=== PATIENT | male | born 1975 | race Hispanic/Latino ===

== ENCOUNTER 2017-01-28 14:39 | Observation (INO) | payer OTHER ==
[~2017-01-28] VITALS: Ht 188 cm; Wt 109.0 kg
[2017-01-28] MEDS ORDERED: BUPR150T5 PO (14:54)
[2017-01-28] MEDS ORDERED: CYMB60CA3 PO (14:54)
[2017-01-28] MEDS ORDERED: NS 1,000 ML IV ONE (15:15)
--- NOTE | 2017-01-28 15:46 | REP ---
CT Head without contrast HISTORY: Altered mental status COMPARISON: None There is no intraparenchymal hemorrhage, acute infarct, mass or midline shift. The ventricular system is normal in appearance. There is no extra cerebral collection. There is no fracture. The visualized sinuses are clear. IMPRESSION: There is no intracranial lesion. Signed by Boni To MD 01/28/2017 03:37 P
[2017-01-28 15:50] LABS: BASO % 0.4 % (0.0-1.0); EOS # 0.1 K/mm3 (0.0-0.50); EOS % 2.4 % (0.0-3.0); LARGE UNSTAINED CELL # 0.1 K/mm3 (0.0-0.4); LARGE UNSTAINED CELL % 2.4 % (0.0-4.0); LYMPH # 0.9 K/mm3 (1.5-4.5); LYMPH % 16.1 % (24.0-44.0); MEAN CORPUSCULAR HEMOGLOBIN 30.3 pg (27.0-33.0); MEAN CORPUSCULAR HGB CONC 34.7 g/dl (32.0-36.5); MEAN CORPUSCULAR VOLUME 87.2 fl (80.0-96.0); MONO # 0.3 K/mm3 (0.0-0.8); MONO % 6.1 % (0.0-5.0); NEUTROPHILS # 3.5 K/mm3 (1.8-7.7); NEUTROPHILS % 72.6 % (36.0-66.0); PLATELET COUNT, AUTOMATED 158 k/mm3 (150-450); RED CELL DISTRIBUTION WIDTH 13.2 % (11.5-14.5); WHITE BLOOD COUNT 4.8 K/mm3 (4.0-10.0)
[2017-01-28 16:06] LABS: METHADONE URINE NEGATIVE (NEGATIVE)
[2017-01-28 16:13] LABS: ALBUMIN 3.7 GM/DL (3.2-5.2); ALBUMIN/GLOBULIN RATIO 1.68 (1.00-1.93); ALKALINE PHOSPHATASE 65 U/L (45-117); ALT/SGPT 24 U/L (12-78); ANION GAP 6 MEQ/L (8-16); AST/SGOT 14 U/L (15-37); BILIRUBIN,DIRECT < 0.1 MG/DL (0.0-0.2); BILIRUBIN,TOTAL 0.5 MG/DL (0.2-1.0); BLOOD UREA NITROGEN 21 MG/DL (7-18); CALCIUM LEVEL 8.3 MG/DL (8.5-10.1); CARBON DIOXIDE LEVEL 27 MEQ/L (21-32); CHLORIDE LEVEL 103 MEQ/L (98-107); CREATININE FOR GFR 1.38 MG/DL (0.70-1.30); GLOMERULAR FILTRATION RATE > 60.0 (>60); GLUCOSE, FASTING 96 MG/DL (70-105); POTASSIUM SERUM 3.6 MEQ/L (3.5-5.1); SODIUM LEVEL 136 MEQ/L (136-145); TOTAL PROTEIN 5.9 GM/DL (6.4-8.2)
--- NOTE | 2017-01-28 16:31 | REP ---
The lung pugh are clear. The cardiac size is normal The yusuf, mediastinum, and bony thorax are unremarkable. Impression: Negative PA and lateral chest. Signed by Shemar Wang MD 01/28/2017 04:22 P
[2017-01-28] MEDS ORDERED: FORT10GE TOP (18:26)
[2017-01-28] MEDS: NS 1,000 ML IV SCH (19:21)
[2017-01-28] MEDS ORDERED: ONDANSETRON 4MG/2ML VIAL (J2405) IV PRN (19:30)
[2017-01-28] MEDS ORDERED: ACETAMINOPHEN TAB 650MG DOSE (2X325MG) PO PRN (19:30)
--- NOTE | 2017-01-28 20:30 | REPUSA ---
MRI of the brain Clinical history: altered mental status. Technique: [id number] MRA images of the brain were obtained without administration of contrast. 3 -D MIP images were also obtained. Findings: The vascular structures extending from the distal carotid and vertebrobasilar arterial syst ems, through the [place], demonstrate normal caliber and contour. There is no evidence of an eurysm, stenosis, or thrombosis. Impression: Unremarkable MRA examination of the brain.
--- NOTE | 2017-01-28 20:37 | HPEPDOC ---
General Date of Admission Jan 28, 2017 at 19:21 Other Providers PCP: [facility] Attending Physician: SLY MORALES MD Chief Complaint The patient is a 41-year-old male admitted with a reason for visit of Altered Awareness,Transient. History of Present Illness 41-year-old male [employer] [employer] with a PMH of Depression was brought to the EMS after he was found to be altered at home. According to the patient's at the bedside the patient returned home at approximately 1 PM this afternoon. Upon arrival home, the states that her appeared to be increasingly lethargic/drowsy, and unresponsive to verbal stimulation. She states that he seemed "loopy" and appeared to be drunk, although the patient has not drank any alcohol in 20+ years. She subsequently called EMS. Upon arrival of EMS personnel , the patient was noted to have pinpoint pupils. The patient was administered some Narcan and there wasn't an improvement in the patient's neurological status. At this time, the patient appears to be back at his baseline. He denies using any any kind of medications or illicit drugs. He states that he does not recollect all of the events, but notes that he does remember coming home and feeling tired. The patient denied any complaints of fevers, chills, headaches, chest pain, palpitations, shortness of breath, abdominal pain, neurological deficits, or any nausea/vomiting/diarrhea. In the ER, a CT scan of the head revealed no acute findings. A toxicology screening was also noted to be negative. Given the patient's transient alteration in mental status, the hospitalist service was called for admission for observation of the patient. Home Medications Scheduled (Fortesta) 10 Mg/Act Gel, 4 DOSE TOP DAILY, (Reported) APPLY 2 PUMPS TO EACH INNER THIGH Bupropion Hcl (Bupropion HCl Sr) 150 Mg Tab, 150 MG PO BID, (Reported) Duloxetine Hcl (Cymbalta) 60 Mg Cap, 60 MG PO DAILY, (Reported) Allergies Coded Allergies: No Known Allergies (Unverified , 01/28/17) Past Medical History Medical History As noted in HPI. Surgical History Lasik surgery in 2002. Family History Significant Family History: Other (mother has multiple sclerosis) Social History * Smoker: Denies Alcohol: Denies Drugs: denies Review of Symptoms Other systems 10 point review of systems negative unless otherwise specified in HPI. Physical Examination General Exam: Positive: Alert, Cooperative, No Acute Distress ENT Exam: Positive: Atraumatic, Mucous membr. moist/pink Neck Exam: Negative: JVD Chest Exam: Positive: Clear to auscultation, Normal air movement Heart Exam: Positive: Rate Normal, Normal S1, Normal S2 Telemetry: Positive: Sinus Abdomen Exam: Positive: Soft, Negative: Tenderness Extremity Exam: Negative: Tenderness, Swelling Neuro Exam: Positive: Strength at 5/5 X4 ext, Normal Tone, Sensation Intact, Cranial Nerves 3-12 NL Psych Exam: Positive: Oriented x 3 Vital Signs Vital Signs Date Time Temp Pulse Resp B/P (MAP) Pulse Ox O2 Delivery O2 Flow Rate FiO2 01/28/17 18:56 79 96 01/28/17 18:41 115/6 (42) 01/28/17 16:41 98.2 01/28/17 14:54 18 Room Air Laboratory Data Labs 24H Laboratory Tests 2 01/28/17 15:39: White Blood Count 4.8, Red Blood Count 4.60, Hemoglobin 13.9L, Hematocrit 40.1L , Mean Corpuscular Volume 87.2, Mean Corpuscular Hemoglobin 30.3, Mean Corpuscular Hemoglobin Concent 34.7, Red Cell Distribution Width 13.2, Platelet Count 158, Neutrophils (%) (Auto) 72.6H, Lymphocytes (%) (Auto) 16.1L, Monocytes (%) (Auto) 6.1H, Eosinophils (%) (Auto) 2.4, Basophils (%) (Auto) 0.4 , Neutrophils # (Auto) 3.5, Lymphocytes # (Auto) 0.9L, Monocytes # (Auto) 0.3, Eosinophils # (Auto) 0.1, Basophils # (Auto) 0.0, Large Unclassified Cells % 2.4 , Large Unclassified Cells # 0.1, Urine Appearance CLEAR, Urine Color STRAW, Urine pH 6.0, Urine Specific [place] 1.004, Urine Protein NEGATIVE, Urine Glucose (UA) NEGATIVE, Urine Ketones NEGATIVE, Urine Urobilinogen 0.2, Urine Bilirubin NEGATIVE, Urine Leukocyte Esterase NEGATIVE, Urine Blood NEGATIVE, Urine Nitrite NEGATIVE, Urine WBC (Auto) 0, Urine RBC (Auto) 0, Urine Hyaline Casts (Auto) 0, Urine Bacteria (Auto) NEGATIVE, Urine Squamous Epithelial Cells 0, Urine Sperm (Auto) , Anion Gap 6L, Glomerular Filtration Rate > 60.0, Calcium Level 8.3L, Aspartate Amino Transf (AST/SGOT) 14L, Alanine Aminotransferase (ALT/SGPT) 24, Alkaline Phosphatase 65, Total Bilirubin 0.5, Direct Bilirubin < 0.1, Total Creatine Kinase 154, Creatine Kinase MB 1.5, Creatine Kinase MB Relative Index 0.97, Troponin I < 0.02, Total Protein 5.9L, Albumin 3.7, Albumin/Globulin Ratio 1.68, Thyroid Stimulating Hormone (TSH) 3.790H, Salicylates Level < 1.7L, Urine Amphetamines Screen NEGATIVE, Urine Benzodiazepines Screen NEGATIVE, Urine Opiates Screen NEGATIVE, Urine Methadone Screen NEGATIVE, Acetaminophen Level 2.1L, Urine Barbiturates Screen NEGATIVE, Urine Phencyclidine Screen NEGATIVE, Urine Cocaine Metabolite Screen NEGATIVE, Urine Cannabinoids Screen NEGATIVE, Ethyl Alcohol Level 0.003 CBC/BMP Laboratory Tests 01/28/17 15:39 Red Blood Count 4.60, Mean Corpuscular Volume 87.2, Mean Corpuscular Hemoglobin 30.3, Mean Corpuscular Hemoglobin Concent 34.7, Red Cell Distribution Width 13.2 , Neutrophils (%) (Auto) 72.6 H, Lymphocytes (%) (Auto) 16.1 L, Monocytes (%) ( Auto) 6.1 H, Eosinophils (%) (Auto) 2.4, Basophils (%) (Auto) 0.4, Neutrophils # (Auto) 3.5, Lymphocytes # (Auto) 0.9 L, Monocytes # (Auto) 0.3, Eosinophils # (Auto) 0.1, Basophils # (Auto) 0.0 Microbiology Microbiology 01/28/17 Urine Culture, Received Pending Plan / VTE VTE Prophylaxis Ordered?: Yes Plan Plan Transient alteration in mental status of unclear etiology CT scan of the head with no acute findings MRI of the brain ordered Toxicology screen negative--however, according to EMS reports the patient's mentation did improve after administration of Narcan in the field The patient denies ingestion of any medication or illicit drugs at this time We will order TFT studies, ammonia level EKG with no acute ST findings, QTC interval noted to be within normal limits We will monitor the patient on telemetry, and do serial neurological checks History of depression Patient denies any suicidal or homicidal ideations Continue bupropion, duloxetine DVT prophylaxis Heparin subcutaneously The patient will be admitted under the service of Dr. Morales, who will begin to follow the patient on 01/29/17 at 7 AM. ALEXANDRO LUGO MD Jan 28, 2017 20:37
--- NOTE | 2017-01-28 20:40 | REPUSA ---
MRI of the brain Clinical history: altered mental status. Technique: Multiecho multiplanar MRI images of the brain were obtained without administration of cont rast. Diffusion weighted images with ADC mapping was also obtained. Findings: The ventricles and sulci are symmetric bilaterally. The brain parenchyma demonstrates uniform and nor mal signal on all sequences. There is no midline shift, mass effect, or extra-axial fluid collection. The midline intracranial structures do not demonstrate any gross abnormalities. The cervical cranial junction is intact. The orbits are unremarkable. The visualized paranasal sinuses and mastoid air ce lls are clear. The osseous structures and superficial soft tissues are unremarkable. The vascular str uctures demonstrate appropriate flow voids. Impression: Normal MRI of the Brain.
[2017-01-28] MEDS ORDERED: buPROPion **SR TABLET** (ZYBAN) 150MG PO SCH (21:00)
[2017-01-28 23:16] VITALS: BP 123/69
[2017-01-29] VITALS: PULSE 64
[2017-01-29] MEDS: NS 1,000 ML IV SCH (03:31)
[2017-01-29 04:00] VITALS: PULSE 55
[2017-01-29 04:06] VITALS: BP 123/77
[2017-01-29 05:54] LABS: MEAN CORPUSCULAR HEMOGLOBIN 31.2 pg (27.0-33.0); MEAN CORPUSCULAR HGB CONC 34.8 g/dl (32.0-36.5); MEAN CORPUSCULAR VOLUME 89.6 fl (80.0-96.0); RED CELL DISTRIBUTION WIDTH 13.5 % (11.5-14.5); WHITE BLOOD COUNT 3.5 K/mm3 (4.0-10.0)
[2017-01-29 06:07] LABS: ALBUMIN 3.3 GM/DL (3.2-5.2); ALBUMIN/GLOBULIN RATIO 1.32 (1.00-1.93); ALKALINE PHOSPHATASE 63 U/L (45-117); ALT/SGPT 22 U/L (12-78); ANION GAP 5 MEQ/L (8-16); AST/SGOT 11 U/L (15-37); BILIRUBIN,TOTAL 0.7 MG/DL (0.2-1.0); BLOOD UREA NITROGEN 16 MG/DL (7-18); CALCIUM LEVEL 7.9 MG/DL (8.5-10.1); CARBON DIOXIDE LEVEL 26 MEQ/L (21-32); CHLORIDE LEVEL 109 MEQ/L (98-107); CREATININE FOR GFR 1.22 MG/DL (0.70-1.30); GLOMERULAR FILTRATION RATE > 60.0 (>60); GLUCOSE, FASTING 88 MG/DL (70-105); MAGNESIUM LEVEL 2.2 MG/DL (1.8-2.4); POTASSIUM SERUM 3.8 MEQ/L (3.5-5.1); SODIUM LEVEL 140 MEQ/L (136-145); T UPTAKE 34 % (33-40); THYROXINE (T4) 5.8 UG/DL (4.5-12.0); TOTAL PROTEIN 5.8 GM/DL (6.4-8.2)
[2017-01-29] MEDS ORDERED: ENOXAPARIN 40 MG/0.4 ML SYRINGE (J1650) SC SCH (09:00)
[2017-01-29] MEDS ORDERED: DULoxetine 30 MG CAP (CYMBALTA) PO SCH (09:00)
--- NOTE | 2017-01-29 14:46 | DSES ---
DATE OF ADMISSION: 01/28/2017 DATE OF DISCHARGE: PRIMARY CARE PROVIDER: Lupe Krishnamurthy DISCHARGE DIAGNOSES: 1. Altered mental status responding to Narcan. 2. History of depression. 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 stated that her appeared to be lethargic and unresponsive and "loopy" and appeared to be drunk. The patient has not drank alcohol in over 20 years. Emergency medical services (EMS) was called. He had pinpoint pupils. Narcan was administered with no significant improvement. Narcan was given, and the patient was back to baseline. Denies any medication or illicit drug use. Could not recollect the events. Admitted to the hospital for further evaluation. MRI of the brain and MRA of the brain were unremarkable with no acute cerebrovascular accident (CVA) or aneurysm. The patient's mentation was back to baseline. Urine drug screen was negative. Ammonia level slightly elevated at 38. No intervention was performed. The patient was back to baseline. Urine culture was negative. The patient was discharged in stable condition to followup with primary care physician within a week of discharge.
--- NOTE | 2017-01-29 16:15 | ECGEPIP ---
Stationary ECG Study [facility] - ED Test Date: 2017-01-28 Pat Name: JENNIFER GUERRERO Department: Room: [place] [address] Gender: M Adult Care Provider: MANNY : 1975 Requested By: Rohit Giron Order Number: [id number] Reading MD: Lindsay Dawson Measurements Intervals [place] Rate: 87 P: 40 ND: 161 QRS: 5 QRSD: 105 T: 17 QT: 331 QTc: 400 Interpretive Statements SINUS RHYTHM NO PRIOR FOR COMPARISON Electronically Signed On 01-29-2017 16:15:36 EDT by Lindsay Dawson
== END 2017-01-29 08:00 | disposition home or self-care (01) ==
LOC: M ED 18:21 → M ED INP 19:21
PROVIDERS: ADMIT Internal Medicine; ATTEND General Practice
DX: R41.82 Altered mental status, unspecified (principal); F32.9 Major depressive disorder, single episode, unspecified; E29.1 Testicular hypofunction; Z79.899 Other long term (current) drug therapy
CPT/HCPCS: 36415; 70450; 70544; 70551; 71020; 80048; 80053; 80076; 80306; 81001; 82140; 82550; 82553; 83735; 84436; 84443; 84479; 85025; 85027; 87086; 93005; 93041; 94760; 99285; G0480